=== PATIENT | male | born 1995 | race Caucasian/White ===

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

== ENCOUNTER 2017-06-15 15:42 | Emergency (ER) | payer OTHER ==
[~2017-06-15] VITALS: Ht 185.4 cm; Wt 86.2 kg
[~2017-06-15 15:42] MED LIST: ROBITUSSIN COU118 ML PO
[2017-06-15] MEDS ORDERED: CLEOCIN HCL300 MG PO (16:02)
[2017-06-15] MEDS ORDERED: IBU600 MG PO (16:02)
== END 2017-06-15 16:16 | disposition home or self-care (01) ==
LOC: ED 15:42
DX: L05.01 Pilonidal cyst with abscess (principal)
CPT/HCPCS: 99283